=== PATIENT | female | born 1950 | race Caucasian/White ===

== ENCOUNTER → 2022-01-30 13:16 | Outpatient (CLI) | payer OTHER, SELFPAY ==
[2022-01-30 17:41] LABS: COVID19 -Nasal RAPID Negative (Negative)
== END ==
PROVIDERS: PCP Family Medicine; Visit Provider Family Medicine Sleep Medicine
DX: Z20.822 Contact with and (suspected) exposure to COVID-19 (principal)
CPT/HCPCS: 87635; C9803

== ENCOUNTER 2022-02-01 08:30 | Day surgery (SDC) | payer OTHER, SELFPAY ==
[2022-01-26 10:21] VITALS: BMI 45.1
[2022-02-01] VITALS (22 sets, daily range): BP systolic 115–153; BP diastolic 64–98; PULSE 71–91; RESP 10–22; TEMP 35.8–37.1; O2SAT 92–99; BMI 45.1
--- NOTE | 2022-02-01 06:00 | DI.RAD.S_ITS ---
PROCEDURE: XR KNEE RT 1TO2V INDICATIONS: prosthesis placement TECHNIQUE: To view(s) of the knee acquired. COMPARISON: None. FINDINGS: Bones: Patient is status post knee joint arthroplasty. Hardware components are in expected positions. Visualized bony structures are intact. Soft tissues: Overlying postoperative changes are noted. IMPRESSION: Expected postsurgical change for right knee arthroplasty. Dictated by: Dhara Ball MD, PhD on 02/01/2022 at 16:03 Approved by: Dhara Ball MD, PhD on 02/01/2022 at 16:03
[2022-02-01] MEDS: CELECOXIB 200 MG CAPSULE PO (09:16)
[2022-02-01] MEDS: ACETAMINOPHEN 325 MG TABLET 975 MG PO (09:16)
[2022-02-01] MEDS: PREGABALIN 75 MG CAPSULE PO (09:16)
[2022-02-01] MEDS: LACTATED RINGERS 1,000 ML 42 ML IV (09:17)
--- NOTE | 2022-02-01 10:14 | PM.PREOP ---
Pre-operative Note COVID-19 COVID-19 status: Negative Result date/Date tested (Pos, Neg/Pending): 01/30/22 Interval Note History & Physical reviewed/Exam performed by Physician: Yes Changes to H&P: No
--- NOTE | 2022-02-01 10:20 | SUR.OPER ---
Supine on padded OR bed. Pillow under head, arms secured on padded armboards <90 degree abduction. Safety belt across torso. Non-operative leg secured with tape over blanket over lower leg. Operative leg secured in DeMayo positioner. Foam padded brace at thigh of operative leg.
[2022-02-01] MEDS: MIDAZOLAM 2 MG/2 ML VIAL IV (10:25)
[2022-02-01] MEDS: fentaNYL 100 MCG/2 ML INJ 50 MCG IV (10:26)
--- NOTE | 2022-02-01 10:46 | SUR.PREOP ---
Block start time [1033] . Monitoring initiated and maintained throughout procedure. Oxygen at 2LNP and medications given per anesthesiologist instructions. Patient remained stable throughout procedure, no adverse reactions noted. Block end time [1043].
[2022-02-01] MEDS: CEFAZOLIN 3 GM IN 0.9 % NACL 3 GM/100 ML PLAST..BAG IV (11:00)
[2022-02-01] MEDS: TRANEXAMIC ACID 1,000 MG VIAL 1000 MG INJ ×2 (11:05→12:15)
[2022-02-01] MEDS: MORPHINE 4 MG/ML INJ INJ (11:27)
[2022-02-01] MEDS: BUPIVACAINE 0.5% (PF) 30 ML, EPINEPHrine 0.15 MG INJ (11:28)
[2022-02-01] MEDS: BUPIVACAINE LIPOSOME 266 MG/20 ML VIAL INJ (12:05)
[2022-02-01] MEDS: ACETAMINOPHEN IV 1,000 MG/100 ML VIAL 400 MG IV (12:20)
--- NOTE | 2022-02-01 12:35 | PM.OP.1 ---
Operative Date/Time/Diagnoses Date of procedure: 02/01/22 Time of procedure: 12:15 Pre-op diagnosis: Right knee osteoarthritis Post-op diagnosis: same Procedure & Clinicians Procedure: Right total knee replacement Same procedure as scheduled: Yes Indications: The patient has had progressively worsening right knee pain with radiographic changes consistent with arthritis. Non-operative management has failed and the patient has requested total knee replacement. The risks, benefits and alternatives to surgery were discussed with the patient prior to proceeding. Risks discussed included, but were not limited to, failure to relieve pain, stiffness, infection, nerve damage, deep venous thrombosis, pulmonary embolism, stroke, coma, heart attack, permanent paralysis and , as well as the potential need for eventual revision of the prosthetic. Surgeon: Giorgi Peña Regional Marketing Manager: Johan Herbert Click Yes if Unassisted: No Anesthesia Type: General, Peripheral nerve block and Local Operative Notes Findings: Moderate tricompartmental osteoarthritis Closure Type: primary Specimen(s): none sent Prosthetic devices, grafts, tissues, transplants, or devices: Implants used in this procedure were manufactured by the [employer] and included the BCS II Journey total knee replacement with a size 5 right Oxinium femur, a size 4 right non porous tibial base plate with a 13 mm cross-linked polyethylene tibial insert and a 32 mm oval Jennifer II patellar component. Applied: implant(s) Estimated Blood Loss (mL): 25 Blood products transfused: none Tourniquet time (min): 55 Procedure in detail: The patient was seen in the pre-operative area, where the patient identified the right knee as the operative site and this was marked with my initials. The patient received pre-operative antibiotics, and was taken to the operating room and placed on the operative table in the supine position. After satisfactory anesthesia, a inspector timers out was performed. The right leg was encircled with a tourniquet about the proximal thigh, and the leg was prepared from the toes to the tourniquet with ChloroPrep in the usual fashion and draped through sterile drapes. The leg was elevated and exsanguinated with Eschmark bandage and the tourniquet inflated to 250 mmHg pressure. The knee was approached through an approximately 18 cm incision centered over the patella and carried into the knee through a medial parapatellar arthrotomy. The anterior osteophytes and soft tissues were removed. The rotational landmarks of Gurdon's line and the transepicondylar axis were marked on the femur with electrocautery, and intramedullary guide holes for the femur and tibia were created. The distal femoral cut was made in 6 degrees of valgus using the intramedullary guide at the primary cut setting. The proximal tibial cut was then made using the intramedullary guide, taking 9 mm of bone off the less involved side. The extension gap was checked and the rotation of the femoral component confirmed with the gap balancing system. The anterior, posterior and chamfer cuts were then made. The posterior osteophytes and soft tissues were then removed. The posterior capsule was injected with part of a mixture of 40 ml 0.25% Marcaine mixed with 20 ml Exparel and 4 mg of morphine for post-operative pain control. The remainder of this mixture was injected into the capsule and subcutaneous tissues during cement curing. The tibia was prepared with the rotation set by an extra medullary guide. Trial tibial and femoral components were then placed and the intercondylar notch cut through the femoral trial. Range of motion was 0-130 degrees with further flexion limited by the patient's body habitus, with good stability throughout the range. The patella was then cut to accommodate the patellar prosthetic. There was no need for a lateral release. The trials were then removed, and the femoral hole plugged with a bone plug. The bone was prepared with pulsatile lavage, and dried with a sponge. Cement was applied and the final prosthetics placed. Excess cement was removed during and after cement curing. After confirming there was no extruded cement posteriorly, the final tibial insert was placed. The knee was copiously irrigated and the tourniquet deflated. Hemostasis was obtained. The capsule was closed with interrupted # 2 polyester suture. The subcutaneous layer was closed with 3-0 Vicryl, and the skin with a running 3-0 V-Lock suture and Dermabond. A Sujey dressing was applied and the patient was taken to recovery having tolerated the procedure well. Complications: none Post-operative Condition: stable Disposition: PACU Plan for aftercare: The patient will be maintained on a standard total knee replacement protocol with weight bearing as tolerated. The patient will receive aspirin and sequential compression devices for DVT prophylaxis. The patient will be discharged home when safe for the home environment.
[2022-02-01] MEDS: LACTATED RINGERS 1,000 ML 100 ML IV (15:17)
[2022-02-01] MEDS: OXYCODONE IR 10 MG TABLET PO ×2 (19:12→22:25)
[2022-02-01] MEDS: ONDANSETRON 4 MG/2 ML INJ IV (19:12)
[2022-02-01] MEDS: ASPIRIN EC 81 MG TABLET PO (21:33)
[2022-02-01] MEDS: IBUPROFEN 400 MG TABLET PO (21:33)
[2022-02-01] MEDS: ACETAMINOPHEN 325 MG TABLET 650 MG PO (21:34)
[2022-02-01] MEDS: ZOLPIDEM 5 MG TABLET 10 MG PO (21:35)
[2022-02-01] MEDS: DOCUSATE 100 MG CAPSULE PO (21:35)
--- NOTE | 2022-02-02 02:03 | PC.NURSE ---
0130: 69% spo2 on RA, patient somnolent. sternal rub to awaken. fingers on R hand cold, spo2 moved to left hand, fingers much warmer. spo2 79% then slowly climbed to 89-90% and eventually 95% w/ cpap (via nasal pillows). 0130 ibuprofen held, patient denies pain/discomfort at this time. 2-3pa bed mobility, assisting w/ pulling up in bed. difficult to rouse. CPOX on, frequent safety and room checks. currently 96-98% w/ cpap on. knee wrapped w/ shravan wrap, ice pack in place. continues w/ IVF LR at 100/hour.
[2022-02-02 04:00] VITALS: BP 122/61; PULSE 70; RESP 18; TEMP 36.4; O2SAT 95
[2022-02-02] MEDS: IBUPROFEN 400 MG TABLET PO ×2 (05:04→08:37)
--- NOTE | 2022-02-02 07:37 | PM.DS.1 ---
History of Present Illness History of Present Illness Date Patient Seen: 02/02/22 Time Patient Seen: 07:37 Chief complaint: RT TKA *OPB* Narrative: History and physical are contained in the chart previously completed note. Please refer to that note for this information. Discharge Providers Provider Date of admission: February 01, 2022 Discharge Date: 02/02/22 Primary care physician: Zeynep Blood MD Consults: 02/01/22 14:43 Consult to Discharge Planning Routine Comment: Consult to Physical Therapy Evaluate & Treat Comment: Physician Instructions: postop TKA protocol Discharge provider: Giorgi Peña MD Summary Hospital Course Discharge Diagnosis: 1. Right knee osteoarthritis 2. Morbid obesity limiting mobilization Hospital Course: The patient was admitted to the hospital and taken directly to the operating room on February 01, 2022 where she underwent a right total knee replacement without complication. On postoperative day 1 she was reasonably comfortable in her hospital bed. She had not been able to mobilize overnight. At the at the time of this dictation the plan is for her to see Physical therapy today and then be discharged later in the day Status at Discharge Cognitive/behavioral status at discharge: at baseline, oriented Functional status at discharge: uses cane/walker Overall status at discharge: patient is progressing back to baseline Time Spent with Patient Time spent: Less than 30 minutes Exam Vital Signs (past 8 hours): - 02/02/22 04:00 Temperature 97.6 F Pulse Rate 70 Respiratory Rate 18 Blood Pressure 122/61 Pulse Oximetry 95 Oxygen Delivery Method Room Air,CPAP Oxygen Flow Rate 0 Narrative Exam Narrative: Right knee wound is dressed with no drainage on the bandage. Calf is soft. Light touch and motion are intact in the right lower extremity. [facility] Medical History (Updated 01/25/22 @ 14:32 by Rosaura Guerrero RN) Acid reflux Meniere's disease LASHAUN on CPAP Osteoarthritis Surgical History (Updated 01/25/22 @ 14:32 by Rosaura Guerrero RN) History of ankle surgery History of tonsillectomy and adenoidectomy Hx of bilateral cataract extraction Hx of repair of left rotator cuff Hx of straightening of nasal septum Social History (System 12/09/21 @ 09:27 by Lady Celine Singh) household members: spouse Smoking Status: Never smoker alcohol intake: current Discharge Assessment & Plan Assessment and Plan Assessment: The patient is stable postoperative day 1 status post right total knee replacement. She has not mobilized overnight and will need to see physical therapy prior to discharge today. At the time of this dictation the plan is for her to be discharged later today. Plan of Treatment: Discharge to home. Follow-up in 2 weeks. Discharge medications for oxycodone and Vistaril have been sent to her pharmacy. In addition recommendations have been made for the use of ibuprofen and Tylenol for additional pain control and low-dose aspirin for DVT prophylaxis. Discharge Plan Discharge Plan Patient Disposition: Home Discharge orders & Medications Discharge Orders: Discharge (Order); Ordered 02/02/22 Ordered By: Giorgi Peña Prescriptions: New acetaminophen 325 mg Tablet 650 mg PO TID 30 Days Qty: 180 0RF aspirin 81 mg Tablet,Delayed Release (Dr/Ec) 81 mg PO BID 42 Days Qty: 84 0RF ibuprofen 400 mg Tablet 400 mg PO Q4HR 30 Days 0RF oxycodone 5 mg Tablet 5 mg PO Q4H PRN (Reason: Pain, Moderate (4-6)) Qty: 40 0RF hydroxyzine pamoate 25 mg Capsule 25 mg PO Q6HR PRN (Reason: Nausea) Qty: 30 0RF Continued zolpidem 5 mg Tablet 10 mg PO BEDTIME 0RF Follow up/Referrals: Zeynep Blood MD [Primary Care Provider] - Giorgi Peña MD [Physician] - 2 Weeks Diet/Activity/Treatments Diet: Diet as Tolerated and Regular Activity: You may bear weight as tolerated on your right leg. Cold/Heat Therapy: Apply ice to the right knee for 15 minutes every hour as needed for pain control. Skin/Wound/Dressing Care Report to your healthcare provider any signs of infection, such as:: chills, fever, night sweats, increased pain, unusual drainage and unusual redness Dressing: You may remove the Brown wrap 3 days after surgery and shower normally the deeper dressing in place. Leave the deeper dressing in place until your postoperative follow-up. If the central strip of the deeper dressing becomes saturated with either water or blood, please call the office to have it evaluated. Visit Report/Discharge Packet Instructions: DI for Knee Replacement Stand Alone Forms: Surgery Discharge Discharge Data Primary Care Provider: Zeynep Blood Attending Provider: Giorgi Peña Quality VTE Deep Vein Thrombosis/Pulmonary Embolism Present on Admission: No
[2022-02-02 07:51] VITALS: BP 119/55; PULSE 68; RESP 18; TEMP 36.7; O2SAT 95
[2022-02-02 08:26] LABS: Hematocrit 35.3 % (36-46); Hemoglobin 11.9 g/dL (12.0-16.0)
--- NOTE | 2022-02-02 08:34 | CM.DANOTE ---
DCP: Case received, EMR reviewed and met with patient. Spouse, Onofre, was at bedside. Introduced self and role. Was able to obtain information regarding patient's baseline activity status prior to her surgery. DCP assessment completed with information currently available. Patient is a 71 year old female who admitted yesterday morning to the care of the orthopedic team. PCP: Dr. Blood. Payer: confirmed: [facility] Ad[facility]age. Patient came to the hospital for a surgical procedure. She had a right total knee replacement. Patient has history of right osteoarthritis. She is also morbidly obese which has limited her mobilization. Met with patient in her room. She was laying in bed, alert and oriented, asking for breakfast. Patient offered brief information, she uses a cane at baseline, does drive. According to notes in DC Summary, patient had not been able to mobilize overnight, and will need to see how she does with P.T. P: Patient is supposed to discharge home today, but will need to see how she does with P.T. Viviana Nguyen RN/Dust Collector Operator Discharge Planning/Care Management CM Discharge Assessment Start: 02/02/22 08:32 Freq: Status: Active Protocol: Document 02/02/22 08:32 (Rec: 02/02/22 08:34 [id number]) Discharge Planning Assessment Assigned Enrichment Assistant Viviana Nguyen RN/Dust Collector Operator Advance Directives? Yes Advance Directives on File No History Provided By Patient,Family Member,Medical Record Prior Living Arrangements House Household Members spouse Type of transporation used prior to Drives own vehicle admit Independent with ADL's Yes Is patient alert and oriented? Yes DME Already Rented / Owned Cane Patient/Family Preference OP PT Therapy Barriers to Discharge No Comment Will have to see how patient does with P.T. Discharge Plan Home Transportation Arrangement Spouse Referrals Initiated None needed Whiteboard Updated in Patient Room with Yes name and ext. # of Enrichment Assistant Review Status In Process Next Review Type Continued Stay Review Pre-Anesthesia Assessment Start: 01/25/22 13:49 Freq: Status: Complete Protocol: Document 01/26/22 10:21 CAB (Rec: 01/25/22 14:21 CAB [id number]) Pre-Anesthesia Assessment Preferred Name Vera Patient Information Reviewed Via Chart Review Diagnostic Results BMP/CMP,CBC,EKG Comment Outside labs/ECG scanned, COVID screen @ 01/30/22 Primary Care Provider Zeynep Blood Seen Specialist in Last 12 Months Yes Specialist Seen Orthopedist Primary Language Divehi Char Conveyor Tender Cellar Required No Height 5 ft 6 in Weight 280 lb Body Mass Index (BMI) 45.1 Hearing Ability Normal Visual Assist None Dentition Type Teeth, Natural Present Barriers to Learning None Hx Anesthesia Reactions Yes: PONV Hx Family Anesthesia Reaction No Hx Malignant Hyperthermia No Hx Blood Transfusions No Anesthesia Review Requested Yes: Surgeon requested re: Abnormal pre-op ECG alcohol intake current alcohol intake frequency a few times a month Smoking Status Never smoker Substance Use Type does not use Pain Present Pain Reported Musculoskeletal Symptoms Abnormal Gait,Difficulty Walking,Joint Pain History of Falling (Recent or History of Yes ) Patient is completely paralyzed or No completely immobile Prosthesis or Orthotic Device Cane Mental Status Oriented to own ability Is patient on oxygen? No Does patient have PIKE/SOB No Hx Sleep Apnea Yes: Recent CPAP x 1 month CPAP/BIPAP use prescribed used intermittently Will Bring CPAP/BIPAP DOS Yes Currently Taking a Beta Michi No Can You Climb a Flight of Stairs Without No: Due deconditioning SOB Hx Chest Pain No Hx SOB No Hx Syncope or Dizziness No Anti-Coagulant Therapy No Has a Box Cutter No Cardiac Testing No Hx Pacemaker/ICD No Pacemaker Rep Required? No Cardiac Clearance Received Not Applicable Diet Type At Home Regular dysphagia No Gastrointestinal Symptoms Reflux Bladder Pattern Incontinent Urinary Catheter Present No Hx Urinary Self Catheterization No Diabetes No Patient No Lactating No Hx Drug Resistant Organism No Presence of External or Internal Medical Yes: Bilat eye IOLs, CPAP Devices Have you had any close contact with No someone diagnosed with COVID-19? Received a COVID vaccine? Yes Received all doses? Yes Marital Status Lives With spouse Prior Living Arrangements House Number of Floors (Floors) Two Floors Support System Spouse Does the Patient Have Assistance After Yes Surgery Patient Discharge Plan Description Return Home Comment Pt advised overnight length of stay per surgeon office Feels Safe in Current Environment Yes Been Physically Hurt or Threatened By a No Person in Current Environment Do you have thoughts of harming yourself None or others? Are you currently considering suicide? No Do you have a plan to hurt yourself or No Plan others? Do You Have Any Spiritual Beliefs That No May Affect Your HC Choices? Do You Have Any Cultural Practices That No May Affect Your HC Choices? Who Can We Speak to About Patient's Care Family, friends Identifying Code for Release of Patient Declines to issue Information Health Care Proxy/Next of Kin Onofre () Health Care Proxy Emergency Contact Name Onofre () Emergency Contact Advance Directives? Yes Advance Directives on File No Requested Patient Bring Advanced Yes Directives DOS Power of Alley Worker Yes PAC Instructions Bring CPAP/BIPAP,Do not shave/ clip surgical site,Durable medical equipment,Medications to take/avoid,Nasal antibiotic ,No ETOH/petroleum product on skin DOS,NPO,Post-op transportation,Pre-surgical wash,Sturdy shoes/comfortable clothes,Do not bring valuables and remove jewelry
[2022-02-02] MEDS: ASPIRIN EC 81 MG TABLET PO (08:36)
[2022-02-02] MEDS: DOCUSATE 100 MG CAPSULE PO (08:37)
[2022-02-02] MEDS: ACETAMINOPHEN 325 MG TABLET 650 MG PO (08:38)
[2022-02-02] MEDS: OXYCODONE IR 10 MG TABLET PO (08:38)
--- NOTE | 2022-02-02 09:15 | PT.IIE ---
Current Diagnoses Unilateral primary osteoarthritis, right knee (02/01/22) Surgery Performed Operation Date: 02/01/22 10:00 Actual Procedures p Total Knee Arthroplasty(Right) - Giorgi Peña MD Medical History (This Medical Record has been edited. Action required.) Acid reflux Meniere's disease LASHAUN on CPAP Osteoarthritis Physical Therapy Inpatient Evaluation/Re-Eval M1 PT/OT-IP Prior Functional Status Start: 02/02/22 12:09 Freq: NEEDED Status: Active Protocol: Document 02/02/22 09:15 AB (Rec: 02/02/22 12:24 AB [email or web address]) Medical Review Prior Functional Status Medical History Reviewed Yes Communication able to make needs known Mobility and Gait pt stated that she is modified independent with all mobilities and ambulation without AD but uses a SPC occasionally depending on pain Social History Household Members spouse Living Arrangements House Number of Floors (Floors) One Floor Number of Stairs To Enter/Railing? 2 steps B rails to enter from the garage Home Environment Standard Height Toilet,Walk in Shower Home Equipment Front Wheel Walker,Straight Cane,Shower Seat with Backrest ,Hand Held Shower,Grab Bars In Shower M2 PT-IP Current Condition Start: 02/02/22 12:09 Freq: NEEDED Status: Active Protocol: Document 02/02/22 09:15 AB (Rec: 02/02/22 12:24 AB [email or web address]) Physical Therapy Current Condition Current Condition Evaluation Date 02/02/22 Treatment Diagnosis s/p R TKA; difficulty in walking Onset Date 02/01/22 M3 PT-IP Subjective Start: 02/02/22 12:09 Freq: NEEDED Status: Active Protocol: Document 02/02/22 09:15 AB (Rec: 02/02/22 12:24 AB [email or web address]) Subjective Physical Therapy Visit Type Type Initial Evaluation Visit Start Time 09:15 Visit Stop Time 10:10 Total Visit Minutes 55 Number of FURNACE LOADER Visits 0 Physical Therapy Visit Comments Patient Comments agreeable to do PT Therapy Pain Assessment Pain When Pain Assessed During Mobility Pain Present Pain Present Pain Reported Location r knee Intensity 5 Scale Used Numeric (0 - 10) Pain Management Techniques Distraction,Modification of Treatment,Re-positioning, Timing of Activity with Medications M4 PT-IP Mobility and Gait Start: 02/02/22 12:09 Freq: NEEDED Status: Active Protocol: Document 02/02/22 09:15 AB (Rec: 02/02/22 12:24 AB [id number]) PT-Bed Mobility Assessment Supine to Sit Supine to Sit Maximum Assistance PT-Transfer Assessment Sit to and From Stand Sit to and from Stand Contact Guard Assistance,1 Person Assistance,Use of Upper Extremities Equipment Transfer Assistive Device Gait Belt,Front Wheeled Walker Orthotic/Prosthetic Devices or Brace: No Transfers Transfer Destination Toilet Transfer Technique ambulated Transfer Ability Level of Assist Contact Guard Assistance,1 Person Assistance,Use of Upper Extremities Comments Mobility Comments pt agreed to do PT. heel slides completed on RLE prior to mobility. completed supine to sit max A and cues with use of bedrail. able to sit on EOB SBA. pt requested to use the toilet but wants brief on first. assisted with brief management. completed sit to stand CGA and able to maintain standing SBA to CGA while assisted with brief. pt ambulated to the toilet ~ 15 ft using FWW CGA. completed sit to stand from the toilet CGA and ambulated to the chair using FWW SBA. caregiver training conducted. educated spouse on how to use safety belt and how to assist pt. spouse was able to put safety belt on pt. assisted pt with sit to stand ambulation to the hallway using FWW SBA to CGA. pt completed up/down steps using B rails and spouse assisting CGA. pt ambulated back to her room SBA to CGA using FWW and sat back on chair. pt refused to do bed mobility training. educated on techniques. spouse stated that he can assist pt. Left pt with spouse in room. call light and table placed within reach. informed nurse regarding pt's mobility. Gait Assessment Gait Gait Assistance Required: Standby Assistance,Contact Guard Assist Distance (Feet) 100 Able to Maintain Weight Bearing Status Yes During Gait Assistive Devices Assistive Device Gait Belt,Front Wheeled Walker Orthotic/Prosthetic Devices or Brace: No Gait Deviations General Gait Pattern Antalgic,Decreased Stride Length,Decreased Feet Clearance Factors Limiting Gait Function Factors Limiting Gait Function Decreased Activity Tolerance, Decreased Strength,Limited Range of Motion,Pain,Poor Balance Stair Climbing Assessment Evaluation Level of Assist On Stairs Contact Guard Assistance Devices Stair Climbing Assistive Devices Left Railing,Right Railing Technique/Endurance Stair Climbing Direction Ascend and Descend Stair Climbing Technique Step to Step Number of Steps Climbed 3 Query Text: Stair Climbing Set # Repetitions (reps) 1 PT-Balance Assessment Sitting Balance and Reactions Static Sitting Balance Ability Good Dynamic Sitting Balance Ability Good Standing Balance and Reactions Static Standing Balance Ability Fair Dynamic Standing Balance Ability Fair Device Used FWW M5 PT-IP Objective Assessments Start: 02/02/22 12:09 Freq: NEEDED Status: Active Protocol: Document 02/02/22 09:15 AB (Rec: 02/02/22 12:24 AB [email or web address]) Orientation Orientation/Cognition Level of Alertness Alert Orientation Name,Place,Situation Language Function Ability No Deficits Noted Safety Awareness Understands Safety Issues, Decreased Safety Awareness Gross Range of Motion Lower Extremity ROM Impairments R knee flexion: ~ 50 deg R knee extension: ~ 20 deg less to 0 Strength Lower Extremity Strength Assessment Right Impaired Hip 4-/5 Knee 3+/5 Coordination Assessment Gross Coordination Gross Coordination WNL Sensation Assessment Sensation Gross Sensation WNL Muscle Tone Muscle Tone WNL Yes M6 PT-IP Treatment Start: 02/02/22 12:09 Freq: NEEDED Status: Active Protocol: Document 02/02/22 09:15 AB (Rec: 02/02/22 12:24 AB [email or web address]) Physical Therapy Treatment Education Education Provided Precautions,Weight Bearing Status,Post-Op Packet,Safety M7 PT-IP Assessment and Plan Start: 02/02/22 12:09 Freq: NEEDED Status: Active Protocol: Document 02/02/22 09:15 AB (Rec: 02/02/22 12:24 AB [email or web address]) PT Summary Assessment and Plan Potential Rehabilitation Potential Good Status of Condition at Evaluation Stable Summary Impairments Pain,ROM,Strength,Balance, Coordination,Sensation,Tone, Cognition,Bed Mobility, Transfers,Gait,Activity Tolerance Assessment Summary pt requiring SBA to CGA with transfers and ambulation using FWW. caregiver training conducted. pt plans to go home today and has outpt PT setup. pt may go home when medically stable. Goals Bed Mobility Goal Independent Transfer Goal Independent,Front Wheeled Walker Gait Goal Independent,Front Wheel Walker Gait Distance 250 Other Goals up/down 2 steps B rails mod I Days to Meet Goals 3 Frequency of Treatment Frequency Of Treatment Twice a Day Treatment Plan Physical Therapy Treatment Plan Bed Mobility Training,Transfer Training,Gait Training, Therapeutic Exercise,Balance Retraining,Post Op Education, Discharge Planning,Hot or Cold Pack,Neuromuscular Re-ed, Coordination Retraining,Manual Therapy Weight Bearing Status Weight Bearing Status Weight Bear as Tolerated Allowed Weight Bearing Amount (enter % RLE WBAT or #) (%) Recommendations To Nursing Amount of Assist Needed 1 Person Assist Discharge Recommendations PT Discharge Recommendations Home with Assistance, Outpatient PT Transportation Needs at Discharge Private Vehicle
== END 2022-02-02 10:34 | disposition home or self-care (01) ==
LOC: OR 08:41 → AC 09:00
PROVIDERS: PCP Family Medicine; Referring Provider Family Medicine; Visit Provider Orthopaedic Surgery
PROC: 0SRC0JZ Replacement of Right Knee Joint with Synthetic Substitute, Open Approach (ICD-10-PCS; CPT 27447; principal; 2022-02-01 10:00)
DX: M17.11 Unilateral primary osteoarthritis, right knee (principal); E66.9 Obesity, unspecified; Z68.42 Body mass index [BMI] 45.0-49.9, adult
CPT/HCPCS: 27447; 36415; 64450; 73560; 85014; 85018; 97116; 97161; 97530; C1776; C1713; C9290; J0131; J0171; J0690; J1100; J1170; J2250; J2270; J2405; J2704; J3010